=== PATIENT | female | born 1935 | race Caucasian/White ===

== ENCOUNTER 2017-01-07 21:56 | Inpatient (IN) | payer OTHER ==
[~2017-01-07] VITALS: Ht 165.1 cm; Wt 72.5 kg
[~2017-01-07 21:56] MED LIST: ADVAIR HFA120 INHAL2 IH; ALPRAZOLAM0.5 MG PO; AMBIEN5 MG PO; AMLODIPINE BESY10 MG PO; ASCORBIC ACID500 M3 PO; ASPIRIN325 MG PO; AUGMENTIN500 MG PO; BISAC-EVAC10 MG PR; BUPROPION XL150 MG PO; BYSTOLIC5 MG PO; CALCIUM 600 +1 EAC1 PO; CALCIUM 600 +1 EACH PO; CALCIUM600 M1 PO; CENTRUM SILVER1 EAC3 PO; CENTRUM SILVER1 EACH PO; COLACE100 MG PO; COMBIVENT RESPIM4 GM IH; DAILY VALUE1 EACH PO; DIOVAN160 MG PO; DOXYCYCLINE HY100 MG PO; DULCOLAX5 MG PO; ECOTRIN325 MG PO; FLEXERIL10 MG PO; FUROSEMIDE20 MG PO; GAVILAX17 GM PO; HYTRIN2 MG PO; IMDUR60 MG PO; ISOSORBIDE MONO60 MG PO; K-DUR10 MEQ PO; KLOR-CON 1010 ME1 PO; LACTINEX PACKE1 EACH PO; LASIX20 MG PO; LEVOTHROID,SYN0.2 MG PO; LIDODERM 5% P1 PATCH TD; LITE COAT ASPI325 M1 PO; LOSARTAN POTAS100 MG PO; LUNESTA2 MG PO; METOPROLOL SUCC25 MG PO; MILK OF MAGN PO; NAPROSYN500 MG PO; NORVASC10 MG PO; OXAZEPAM10 MG PO; OXECTA5 MG PO; OXYCODONE HCL5 MG PO; OXYCONTIN20 MG PO; OXYCONTIN40 MG PO; PREDNISONE20 MG PO; PROMETHAZINE12.5 M1 PO; ROXICODONE5 MG PO; SENNA8.6 MG PO; SERTRALINE HCL100 MG PO; SIMVASTATIN40 M1 PO; SPIRIVA1 INHALATI IH; SUPER CALCIUM600 MG PO; SYNTHROID175 MCG PO; TERAZOSIN HCL10 MG PO; THERAGRAN1 TABLET PO; TRAZODONE HCL50 MG PO; VITAMIN B-12500 MC2 PO; WELLBUTRIN XL150 MG PO; WELLBUTRIN XL300 MG PO; XANAX0.25 MG PO; XANAX0.5 MG PO; ZETIA10 MG PO; ZOCOR20 MG PO; ZOCOR40 MG PO; ZOFRAN4 MG PO; ZOLOFT100 MG PO
[2017-01-07 23:39] LABS: HEMATOCRIT 40.5 % (36.0-46.0); MCH 27.3 PG (29.0-34.0); MCHC 31.9 G/DL (30.0-36.0); MCV 85.8 FL (83-99); MEAN PLAT.VOLUME 10.2 uM^3 (9.5-12.4); PLATELET COUNT 241 K/uL (156-360); RBC DIS.WIDTH-CV 13.6 % (11.8-14.6); RBC DIS.WIDTH-SD 42.6 % (39-53); RED BLOOD COUNT 4.72 M/uL (3.80-5.20); WHITE BLOOD COUNT 7.9 K/uL (4.1-10.2)
[2017-01-07 23:50] LABS: CHLORIDE 103 mEq/L (99-109); POTASSIUM 3.8 mEq/L (3.7-5.4); SODIUM 143 mEq/L (136-147)
[2017-01-07 23:52] LABS: ADD MIUA? NO; BILIRUBIN NEGATIVE; BLOOD NEGATIVE; COLOR YELLOW ((YELLOW)); GLUCOSE (STRIP) NEGATIVE; KETONES 20; LEUKOCYTES NEGATIVE; NITRITE NEGATIVE; PROTEIN (STRIP) 30; SPECIFIC GRAVITY 1.009 (1.000-1.030); UROBILINOGEN 0.2 MG/DL (0.2-1.0)
[2017-01-07 23:52] LABS: GLUCOSE 100 mg/dL (70-99)
[2017-01-07 23:53] LABS: ANION GAP 14 MEQ/L (2-14)
[2017-01-07 23:54] LABS: TOTAL BILIRUBIN 0.3 mg/dL (0.0-1.0)
[2017-01-07 23:55] LABS: SERUM ETHYL ALCOHOL < 10 mg/dL
[2017-01-07 23:56] LABS: ALKALINE PHOSPHATASE 86 IU/L (3-129); GFR ESTIMATE (CALCULATED) > 59 mL/min/
[2017-01-07 23:57] LABS: UREA NITROGEN (BUN) 12 mg/dL (9-23)
[2017-01-08] LABS: AMPHETAMINE NEGATIVE (500 ng/mL); BARBITURATES NEGATIVE (200 ng/mL); BENZODIAZEPINES PRESUMPTIVE POSITIVE (150 ng/mL); COCAINE NEGATIVE (150 ng/mL); INTERNAL CONTROLS VALID? YES; METHADONE NEGATIVE (200 ng/mL); METHAMPHETAMINE NEGATIVE (500 ng/mL); OPIATES (MORPHINE) NEGATIVE (100 ng/mL); OXYCODONE PRESUMPTIVE POSITIVE (100 ng/mL); PHENCYCLIDINE NEGATIVE (25 ng/mL); PROPOXYPHENE NEGATIVE (300 ng/mL); THC CANNABINOIDS NEGATIVE (50 ng/mL); TRICYCLIC ANTIDEPRESSANTS NEGATIVE (300 ng/mL)
[2017-01-08 00:02] LABS: ADD MEDTOX COMMENT Y
[2017-01-08 00:35] LABS: BENZODIAZEPINES, URINE SCREEN POSITIVE (200 ng/mL)
[2017-01-08] MEDS ORDERED: OXYCONTIN40 MG PO (01:02)
[2017-01-08] MEDS ORDERED: VOLTAREN 1% GE100 GM TP (01:03)
[2017-01-08 01:40] VITALS: BP 163/91
[2017-01-08 01:54] VITALS: BP 163/91
[2017-01-08 07:47] VITALS: BP 169/74
[2017-01-08 15:15] VITALS: BP 136/67
[2017-01-09 07:27] VITALS: BP 170/75
[2017-01-09 15:20] VITALS: BP 117/68
[2017-01-10 07:44] VITALS: BP 144/71
[2017-01-10 15:56] VITALS: BP 129/68
[2017-01-11 07:35] VITALS: BP 170/81
[2017-01-11] MEDS ORDERED: ARIPIPRAZOLE5 MG PO (11:55)
[2017-01-11] MEDS ORDERED: MIRTAZAPINE7.5 MG PO (11:55)
== END 2017-01-11 13:50 | disposition home or self-care (01) | DRG 885 ==
LOC: EME 21:56 → EDOF 23:55 → 1WEST 23:55 → ENRESERV 01-08 01:21 → 1WEST 01-08 01:29
PROVIDERS: Emergency Medicine
DX: F20.0 Paranoid schizophrenia (principal); F32.3 Major depressive disorder, single episode, severe with psychotic features; G31.84 Mild cognitive impairment of uncertain or unknown etiology; H91.90 Unspecified hearing loss, unspecified ear; H54.61 Unqualified visual loss, right eye, normal vision left eye; R45.851 Suicidal ideations; I10 Essential (primary) hypertension; E78.5 Hyperlipidemia, unspecified; G47.00 Insomnia, unspecified; Z96.643 Presence of artificial hip joint, bilateral; Z87.891 Personal history of nicotine dependence; Z79.899 Other long term (current) drug therapy; I25.2 Old myocardial infarction
CPT/HCPCS: 80053; 81003; 84443; 84999; 85027; 90839; 97150 GO; 97165 GO; 99281; 99285; G0480

== ENCOUNTER 2017-01-17 17:47 | Inpatient (IN) | payer OTHER ==
[~2017-01-17] VITALS: Ht 167.6 cm; Wt 72.5 kg
[~2017-01-17 17:47] MED LIST changes: +ARIPIPRAZOLE5 MG PO; +MIRTAZAPINE7.5 MG PO; +VOLTAREN 1% GE100 GM TP
[2017-01-17 20:24] LABS: BASOPHIL COUNT 0.1 K/uL (0-0.1); EOSINOPHIL (%) 0.6 % (0-5); EOSINOPHIL COUNT 0.1 K/uL (0-0.3); HEMATOCRIT 39.2 % (36.0-46.0); IMMATURE GRANULOCYTE (%) 0.2 % (0.0-0.7); INSTRUMENT ABS NEUTROPHIL CT 6.1 K/uL; LYMPHOCYTE COUNT 1.8 K/uL (1.0-2.8); MCH 27.6 PG (29.0-34.0); MCHC 31.6 G/DL (30.0-36.0); MCV 87.3 FL (83-99); MEAN PLAT.VOLUME 10.9 uM^3 (9.5-12.4); MONOCYTE COUNT 0.5 K/uL (0-0.8); NEUTROPHIL (%) 71.4 % (45-76); NEUTROPHIL COUNT 6.1 K/uL (1.8-6.4); PLATELET COUNT 234 K/uL (156-360); RBC DIS.WIDTH-CV 13.9 % (11.8-14.6); RBC DIS.WIDTH-SD 44.7 % (39-53); RED BLOOD COUNT 4.49 M/uL (3.80-5.20); WHITE BLOOD COUNT 8.6 K/uL (4.1-10.2)
[2017-01-17 20:28] LABS: CHLORIDE 107 mEq/L (99-109); POTASSIUM 4.5 mEq/L (3.7-5.4); SODIUM 143 mEq/L (136-147)
[2017-01-17 20:31] LABS: GLUCOSE 101 mg/dL (70-99)
[2017-01-17 20:32] LABS: ANION GAP 11 MEQ/L (2-14)
[2017-01-17 20:33] LABS: TOTAL BILIRUBIN 0.5 mg/dL (0.0-1.0)
[2017-01-17 20:34] LABS: ALKALINE PHOSPHATASE 85 IU/L (3-129); GFR ESTIMATE (CALCULATED) > 59 mL/min/
[2017-01-17 20:35] LABS: UREA NITROGEN (BUN) 11 mg/dL (9-23)
[2017-01-17 20:36] LABS: ADD MIUA? YES; BILIRUBIN NEGATIVE; BLOOD NEGATIVE; COLOR YELLOW ((YELLOW)); GLUCOSE (STRIP) NEGATIVE; KETONES NEGATIVE; LEUKOCYTES MODERATE; NITRITE NEGATIVE; PROTEIN (STRIP) 30; SPECIFIC GRAVITY 1.011 (1.000-1.030); UROBILINOGEN 0.2 MG/DL (0.2-1.0)
[2017-01-17 21:22] LABS: BACTERIA 1+ /HPF; EPITHELIAL CELLS 1+ /HPF; MUCUS NONE SEEN /LPF; RED BLOOD CELLS NONE SEEN /HPF (0-5); UCUL ADDED? NO; WHITE BLOOD CELLS 0-5 /HPF (0-5)
[2017-01-17 21:23] LABS: CASTS NONE SEEN /LPF; CRYSTALS NONE SEEN
[2017-01-18 15:21] VITALS: BP 162/90
[2017-01-18 15:53] VITALS: BP 162/90
[2017-01-19 07:46] VITALS: BP 157/65
[2017-01-19 16:18] VITALS: BP 154/75
[2017-01-19 19:28] VITALS: BP 184/79
[2017-01-20 07:51] VITALS: BP 158/71
[2017-01-20 15:20] VITALS: BP 108/58
[2017-01-21 07:44] VITALS: BP 148/65
[2017-01-21 15:17] VITALS: BP 128/59
[2017-01-22 15:41] VITALS: BP 148/68
[2017-01-23 07:58] VITALS: BP 155/111
[2017-01-23 14:55] VITALS: BP 162/67
[2017-01-24 07:17] VITALS: BP 173/77
[2017-01-24 15:31] VITALS: BP 163/72
[2017-01-24 19:22] VITALS: BP 174/72
[2017-01-25 07:48] VITALS: BP 196/102
[2017-01-25 15:53] VITALS: BP 170/62
[2017-01-25 19:34] VITALS: BP 153/67
[2017-01-26 07:42] VITALS: BP 199/82
[2017-01-26 09:08] VITALS: BP 166/76
[2017-01-26] MEDS ORDERED: ABILIFY15 MG PO (09:20)
== END 2017-01-26 10:23 | disposition home or self-care (01) | DRG 885 ==
LOC: EME 17:47 → 1WEST 01-18 11:40 → EDOF 01-18 11:40 → 1WEST 01-18 14:43 → ENRESERV 01-18 14:43 → 1WEST 01-23 18:30
PROVIDERS: Emergency Medicine
DX: F29 Unspecified psychosis not due to a substance or known physiological condition (principal); G31.84 Mild cognitive impairment of uncertain or unknown etiology; I10 Essential (primary) hypertension; J43.9 Emphysema, unspecified; E03.9 Hypothyroidism, unspecified; L73.9 Follicular disorder, unspecified; I44.0 Atrioventricular block, first degree; E78.5 Hyperlipidemia, unspecified; H54.61 Unqualified visual loss, right eye, normal vision left eye; H91.90 Unspecified hearing loss, unspecified ear; F41.9 Anxiety disorder, unspecified; I25.2 Old myocardial infarction; M19.90 Unspecified osteoarthritis, unspecified site; F17.200 Nicotine dependence, unspecified, uncomplicated; Z59.0 Homelessness; Z85.3 Personal history of malignant neoplasm of breast; Z96.653 Presence of artificial knee joint, bilateral; Z96.643 Presence of artificial hip joint, bilateral
CPT/HCPCS: 71010; 80053; 81003; 85025; 90839; 93005; 97150 GO; 97165 GO; 99281; 99285